=== PATIENT | male | born 1960 | race Caucasian/White ===

== ENCOUNTER → 2023-05-03 | Outpatient (REF) | payer BC | LOC: M SFHCDERM 17:36 | PROVIDERS: ATTEND Physician Assistant | DX: Z51.89 Encounter for other specified aftercare (principal) ==

== ENCOUNTER → 2025-01-06 | Outpatient (REF) | payer BC, MEDICARE | LOC: M SFHCDERM 17:54 | PROVIDERS: ATTEND Physician Assistant | DX: C44.319 Basal cell carcinoma of skin of other parts of face (principal) ==